=== PATIENT | female | born 1975 | race Caucasian/White ===

== ENCOUNTER 2016-09-12 22:25 | Emergency (ER) | payer OTHER ==
[~2016-09-12 22:25] MED LIST: ATENOLOL50 MG PO; COL100 PO; FLO4 PO; HYDROCHLOROTHIA25 MG PO; LEXAPRO10 MG PO; MAC100 PO; MEDDP PO; NORCO1 TA2 PO; ZITHROMAX250 MG PO
[2016-09-12 23:43] LABS: BASOPHIL % 0.3 % (0-2); PLATELET COUNT 279 x10^3mcL (130-400); RED CELL DISTRIBUTION WIDTH 12.6 % (11.5-14.5)
[2016-09-12 23:45] LABS: CALCIUM 8.5 mg/dL (8.5-10.1); CARBON DIOXIDE 27.6 mmol/L (21-32); CHLORIDE SERUM 104 mmol/L (98-107); GFR1 > 60 mL/min; GLUCOSE SERUM 101 mg/dL (74-106); POTASSIUM SERUM 3.4 mmol/L (3.5-5.1); SODIUM SERUM 141 mmol/L (136-145)
[2016-09-12 23:50] LABS: ALBUMIN 3.6 g/dL (3.4-5.0); ALKALINE PHOSPHATASE 109 U/L (46-116); ALT/SGPT 28 U/L (14-59); AST/SGOT 20 U/L (15-37); BILIRUBIN TOTAL 0.4 mg/dL (0.20-1.00); TOTAL PROTEIN, SERUM 7.5 g/dL (6.4-8.2)
[2016-09-13 01:15] VITALS: BP 134/77
== END 2016-09-13 01:15 | disposition home or self-care (01) ==
LOC: ED 22:25
PROVIDERS: Emergency Medicine
DX: B34.9 Viral infection, unspecified (principal); I10 Essential (primary) hypertension; E87.6 Hypokalemia
CPT/HCPCS: 83880; J7030

== ENCOUNTER 2016-11-12 04:22 | Emergency (ER) | payer OTHER ==
[2016-11-12 09:31] VITALS: BP 136/80
== END 2016-11-12 09:31 | disposition home or self-care (01) ==
LOC: ED 04:22
DX: M54.5 Low back pain (principal)
CPT/HCPCS: J1885; J2930

== ENCOUNTER 2017-10-11 23:20 | Emergency (ER) | payer OTHER ==
[~2017-10-11] VITALS: Ht 157.5 cm; Wt 103.0 kg
[2017-10-11 23:23] VITALS: Ht 157.5 cm; Wt 103.0 kg
[2017-10-12 01:55] VITALS: BP 142/78
== END 2017-10-12 02:02 | disposition home or self-care (01) ==
LOC: ED 23:20
DX: M54.5 Low back pain (principal); I10 Essential (primary) hypertension; E11.9 Type 2 diabetes mellitus without complications
CPT/HCPCS: J1885; J2270; Q0162

== ENCOUNTER 2018-09-03 10:22 | Emergency (ER) | payer OTHER ==
[~2018-09-03] VITALS: Ht 162.6 cm; Wt 103.9 kg
[2018-09-03 10:26] VITALS: Ht 162.6 cm; Wt 103.9 kg
[2018-09-03 11:50] VITALS: BP 134/92
== END 2018-09-03 11:50 | disposition home or self-care (01) ==
LOC: ED 10:22
DX: M43.6 Torticollis (principal); I10 Essential (primary) hypertension; E11.9 Type 2 diabetes mellitus without complications